=== PATIENT | female | born 2000 | race Caucasian/White ===

== ENCOUNTER 2023-05-09 11:11 | Emergency (ER) | payer BC, SELFPAY ==
[2023-05-09 11:25] VITALS: BP 112/69; PULSE 67; RESP 16; TEMP 36.3; O2SAT 100
--- NOTE | 2023-05-09 11:49 | ED.FEMALEGU ---
HPI - Female Genitourinary General Chief complaint: Urogenital-Female Stated complaint: Female Urogenital Time Seen by Provider: 05/09/23 11:45 Source: patient and RN notes reviewed Mode of arrival: ambulatory Limitations: no limitations History of Present Illness HPI Narrative: Patient presents today with a 2 day history of urgency and dysuria. Denies hematuria, abdominal pain or back pain, fever. She has tried no medication for symptoms prior to arrival. No recent antibiotic use. Related Data Home Medications Medication Instructions Recorded Confirmed Control Pill 1 pill PO DAILY 05/09/23 05/09/23 spironolactone 50 mg tablet 50 mg PO DAILY 05/09/23 05/09/23 Allergies Allergy/AdvReac Type Severity Reaction Status Date / Time No Known Allergies Allergy Verified 05/09/23 11:29 Review of Systems Review of Systems: CONSTITUTIONAL: Denies body aches, fever, chills, or sweats. EYES: Denies visual changes, redness, or discharge. ENT: Denies rhinorrhea, congestion, sore throat, or otalgia. CARDIOVASCULAR: Denies chest pain, palpitations, or edema. RESPIRATORY: Denies cough or dyspnea. GASTROINTESTINAL: Denies abdominal pain, nausea, vomiting, or diarrhea. GENITOURINARY: + urgency, dysuria. SKIN: Denies rash, itching, or wounds. MUSCULOSKELETAL: Denies back pain, joint pain, or myalgia. NEUROLOGIC: Denies headache, numbness, tingling, or weakness. PSYCH: Denies depression or anxiety. PMFSH Comments At time of signature, I have reviewed and agree with nursing past medical, surgical, social and family history unless otherwise noted. Please see nursing chart for further information. There is no relevant family history pertinent to the presenting complaint Exam Narrative: GENERAL: Well-appearing, well-nourished, and in no acute distress. HEAD: Normocephalic, atraumatic. EYES: EOMI. No redness or drainage. Conjunctivae normal. ENT: Mucous membranes pink and moist. NECK: Normal AROM. CHEST: No respiratory distress. Clear to auscultation. HEART: Regular rate and rhythm. No murmur appreciated. ABDOMEN: Soft, nontender, nondistended, normal active bowel sounds. -CVAT EXTREMITIES: Normal range of motion. No edema. SKIN: Warm, dry, no rash. Capillary refill normal. Normal skin turgor. NEURO: No focal deficits. Alert and oriented x3. Gait steady. PSYCH: Normal affect. No signs of depression or anxiety. Course Course Level of Care: Express Care Visit Vital Signs Vital signs: Vital Signs Temperature 97.3 F L 05/09/23 11:25 Pulse Rate 67 05/09/23 11:25 Respiratory Rate 16 05/09/23 11:25 Blood Pressure 112/69 05/09/23 11:25 Pulse Oximetry 100 05/09/23 11:25 Oxygen Delivery Room Air 05/09/23 11:25 Temperature 97.3 F L 05/09/23 11:25 Pulse Rate 67 05/09/23 11:25 Respiratory Rate 16 05/09/23 11:25 Blood Pressure 112/69 05/09/23 11:25 Pulse Oximetry 100 05/09/23 11:25 Oxygen Delivery Room Air 05/09/23 11:25 Reviewed MDM - Female Genitourinary MDM Narrative Medical decision making narrative: Urinalysis is consistent with UTI. Will treat with Keflex. Anticipatory guidance given. Differential Diagnosis Differential diagnosis: Likely urinary tract infection, vaginitis and cystitis Lab Data Attestation: I reviewed the patient's lab results. Labs: Urine Glucose Negative Reference Range: Negative Urine Glucose Negative Reference Range: Negative Urine Bilirubin Negative Reference Range: Negative Urine Bilirubin Negative Reference Range: Negative Urine Ketone Negative Reference Range: Negative Urine Ketone Negative
== END 2023-05-09 11:55 | disposition home or self-care (01) ==
PROVIDERS: Emergency Provider Nurse Practitioner
DX: N30.01 Acute cystitis with hematuria (principal); Z86.16 Personal history of COVID-19
CPT/HCPCS: 81003; 87086; 87088; 99203; G0463